=== PATIENT | female | born 1950 | race Caucasian/White ===

== ENCOUNTER → 2017-03-19 | Outpatient (CLI) | payer MEDICARE, MEDICAID ==
[~2017-03-19] MED LIST: ACET-1600 PO; CHOL200074 PO; CITA10TA8 PO; CYAN1TAB29 PO; DULO30CA2 PO; ESOM20CA PO; HYDR25TA6 PO; LEVO50TA5 PO; LISI1TAB3 PO; LISI5TAB7 PO; MV,I66.7 PO; PRAV40TA2 PO; PRED5TAB PO; ROPI0.2537 PO; TOPI25TA32 PO; TRAM50TA2 PO; [UNRECOGNIZED DRUG - REMARK] PO; vitamin d PO
[2017-03-19 15:48] LABS: BASOPHILS # (AUTO) 0.05 x10^3/uL (0-0.1); BASOPHILS % (AUTO) 1 % (0-1); EOSINOPHILS # (AUTO) 0.19 x10^3/uL (0-0.4); EOSINOPHILS % (AUTO) 3 % (1-7); LYMPHOCYTES # (AUTO) 1.47 x10^3/uL (1-3.4); LYMPHOCYTES % (AUTO) 19 % (22-44); MD NO; MEAN CORPUSCULAR HGB CONC 31.8 g/dL (32.4-35.8); MEAN CORPUSCULAR VOLUME 81.8 fL (80-100); MEAN PLATELET VOLUME 7.8 fL (7.4-10.4); MONOCYTES # (AUTO) 0.66 x10^3/uL (0.2-0.8); MONOCYTES % (AUTO) 9 % (2-9); NEUTROPHILS # (AUTO) 5.41 x10^3/uL (1.8-6.8); NEUTROPHILS % (AUTO) 70 % (42-75); PLATELET COUNT 250 x10^3/uL (130-400); RED BLOOD COUNT 4.47 x10^6/uL (3.82-5.3); RED CELL DISTRIBUTION WIDTH 16.6 % (9.6-15.2)
[2017-03-19 15:59] LABS: ALBUMIN 3.8 g/dL (3.4-5.0); ANION GAP 7 mmol/L (5-15); CALCIUM 8.5 mg/dL (8.5-10.1); CHLORIDE 112 mmol/L (98-107)
[2017-03-19 16:04] LABS: ALANINE AMINOTRANSFERASE 30 U/L (12-78); ALKALINE PHOSPHATASE 139 U/L (45-117); BILIRUBIN,TOTAL 0.5 mg/dL (0.2-1.0); TOTAL PROTEIN 7.5 g/dL (6.4-8.2)
== END | disposition home or self-care (01) ==
LOC: STAR 14:20
PROVIDERS: ATTEND Colon & Rectal Surgery
DX: Z01.818 Encounter for other preprocedural examination (principal)
CPT/HCPCS: 36415; 80053; 85025; 93005

== ENCOUNTER 2017-04-03 13:25 | Inpatient (IN) | payer MEDICARE, MEDICAID ==
[~2017-04-03] VITALS: Ht 162.6 cm; Wt 71.9 kg
[2017-04-03] MEDS ORDERED: ONDANSETRON 2MG/ML, 2ML IVPush ONE (14:30)
[2017-04-03] MEDS ORDERED: SODIUM CHLORIDE FLUSH 10ML SYR IVF ONE (14:30)
[2017-04-03] MEDS ORDERED: SODIUM CHLORIDE 0.9% 1,000ML IVBOLUS ONE (14:30)
[2017-04-03 14:57] LABS: MEAN CORPUSCULAR HEMOGLOBIN 26.3 pg (27.0-34.8); MEAN CORPUSCULAR HGB CONC 32.1 g/dL (32.4-35.8); MEAN CORPUSCULAR VOLUME 81.9 fL (80-100); MEAN PLATELET VOLUME 7.8 fL (7.4-10.4); PLATELET COUNT 460 x10^3/uL (130-400); RED BLOOD COUNT 4.64 x10^6/uL (3.82-5.3); RED CELL DISTRIBUTION WIDTH 17.7 % (9.6-15.2)
[2017-04-03 14:59] LABS: ALANINE AMINOTRANSFERASE 17 U/L (12-78); ANION GAP 9 mmol/L (5-15); CALCIUM 8.6 mg/dL (8.5-10.1); CHLORIDE 102 mmol/L (98-107); CREATININE 0.88 mg/dL (0.55-1.02)
[2017-04-03 15:01] LABS: ALKALINE PHOSPHATASE 118 U/L (45-117); BILIRUBIN,TOTAL 0.5 mg/dL (0.2-1.0); TOTAL PROTEIN 7.1 g/dL (6.4-8.2)
[2017-04-03] MEDS ORDERED: ONDANSETRON 2MG/ML, 2ML ONE (15:21)
[2017-04-03 15:28] LABS: BASOPHILS # (AUTO) 0.04 x10^3/uL (0-0.1); BASOPHILS % (AUTO) 0 % (0-1); EOSINOPHILS # (AUTO) 0.27 x10^3/uL (0-0.4); EOSINOPHILS % (AUTO) 2 % (1-7); LYMPHOCYTES # (AUTO) 1.34 x10^3/uL (1-3.4); LYMPHOCYTES % (AUTO) 9 % (22-44); MD SCAN; MONOCYTES # (AUTO) 0.75 x10^3/uL (0.2-0.8); MONOCYTES % (AUTO) 5 % (2-9); NEUTROPHILS # (AUTO) 11.86 x10^3/uL (1.8-6.8); NEUTROPHILS % (AUTO) 83 % (42-75)
[2017-04-03 16:42] LABS: MICROSCOPIC NOT IND
[2017-04-03] MEDS ORDERED: OMNIPAQUE 350 MG/ML, 100ML BOTTLE ONE (16:48)
[2017-04-03 17:13] LABS: CULTURE INDICATED? NO
[2017-04-03] MEDS ORDERED: D5%-0.45% NACL 1,000 ML IV ONE (18:36)
[2017-04-03] MEDS ORDERED: PROMETHAZINE 25 MG/ML, 1ML IM PRN (19:00)
[2017-04-03] MEDS ORDERED: ONDANSETRON 2MG/ML, 2ML IVPush PRN (19:00)
[2017-04-03 19:53] VITALS: BP 125/76
[2017-04-03 19:55] VITALS: BP 125/76
[2017-04-03] MEDS: LORazepam 2 MG/ML, 1ML IVPush PRN (22:33)
[2017-04-03] MEDS ORDERED: OXYC-302 PO (23:53)
[2017-04-04 02:05] VITALS: BP 109/62
[2017-04-04 07:25] VITALS: BP 116/72
[2017-04-04] MEDS ORDERED: TOPIRAMATE 25 MG TABLET PO PRN ×2 (11:30→12:00)
[2017-04-04] MEDS: ROPINIROLE 0.5MG TABLET PO SCH ×3 (12:17→20:39)
[2017-04-04] MEDS: NS + 20MEQ KCL 1,000 ML IV SCH (12:17)
[2017-04-04 14:58] VITALS: BP 117/67
[2017-04-04] MEDS ORDERED: ROPINIROLE 0.5MG TABLET PO SCH (16:00)
[2017-04-04 19:59] VITALS: BP 94/54
[2017-04-04] MEDS: DULOXETINE 30 MG CAPSULE.DR PO SCH (20:38)
[2017-04-04] MEDS: OXYcodone/APAP 5/325MG TABLET PO PRN ×2 (20:38→23:18)
[2017-04-04] MEDS: ONDANSETRON 2MG/ML, 2ML IVPush PRN (20:38)
[2017-04-04] MEDS: PRAVASTATIN 40 MG TABLET PO SCH (20:39)
[2017-04-04] MEDS: LORazepam 2 MG/ML, 1ML IVPush PRN (21:18)
[2017-04-05 01:12] VITALS: BP 123/79
[2017-04-05 05:58] LABS: BASOPHILS # (AUTO) 0.03 x10^3/uL (0-0.1); BASOPHILS % (AUTO) 0 % (0-1); EOSINOPHILS # (AUTO) 0.68 x10^3/uL (0-0.4); EOSINOPHILS % (AUTO) 7 % (1-7); LYMPHOCYTES # (AUTO) 1.69 x10^3/uL (1-3.4); LYMPHOCYTES % (AUTO) 17 % (22-44); MD NO; MEAN CORPUSCULAR HEMOGLOBIN 26.7 pg (27.0-34.8); MEAN CORPUSCULAR HGB CONC 32.5 g/dL (32.4-35.8); MEAN CORPUSCULAR VOLUME 82.1 fL (80-100); MEAN PLATELET VOLUME 7.7 fL (7.4-10.4); MONOCYTES # (AUTO) 0.87 x10^3/uL (0.2-0.8); MONOCYTES % (AUTO) 9 % (2-9); NEUTROPHILS # (AUTO) 6.51 x10^3/uL (1.8-6.8); NEUTROPHILS % (AUTO) 67 % (42-75); PLATELET COUNT 395 x10^3/uL (130-400); RED BLOOD COUNT 3.82 x10^6/uL (3.82-5.3); RED CELL DISTRIBUTION WIDTH 17.3 % (9.6-15.2)
[2017-04-05 06:02] LABS: ANION GAP 9 mmol/L (5-15); CALCIUM 8.1 mg/dL (8.5-10.1); CHLORIDE 108 mmol/L (98-107)
[2017-04-05 06:05] LABS: CREATININE 0.82 mg/dL (0.55-1.02)
[2017-04-05 06:42] VITALS: BP 115/66
[2017-04-05] MEDS: ROPINIROLE 0.5MG TABLET PO SCH ×4 (09:26→22:51)
[2017-04-05] MEDS: NS + 20MEQ KCL 1,000 ML IV SCH (09:28)
[2017-04-05] MEDS: METOCLOPRAMIDE 10MG TABLET PO SCH ×2 (11:50→16:45)
[2017-04-05 12:38] VITALS: BP 124/73
[2017-04-05] MEDS: ONDANSETRON 2MG/ML, 2ML IVPush PRN ×2 (15:31→19:49)
[2017-04-05 19:37] VITALS: BP 116/70
[2017-04-05] MEDS: PRAVASTATIN 40 MG TABLET PO SCH (19:43)
[2017-04-05] MEDS: DULOXETINE 30 MG CAPSULE.DR PO SCH (19:43)
[2017-04-05] MEDS: LORazepam 2 MG/ML, 1ML IVPush PRN (22:24)
[2017-04-06] MEDS: ONDANSETRON 2MG/ML, 2ML IVPush PRN ×4 (00:28→19:40)
[2017-04-06] MEDS: METOCLOPRAMIDE 10MG TABLET PO SCH ×4 (00:28→17:00)
[2017-04-06] MEDS: OXYcodone/APAP 5/325MG TABLET PO PRN (00:28)
[2017-04-06 03:55] VITALS: BP 110/69
[2017-04-06 04:55] LABS: BASOPHILS # (AUTO) 0.07 x10^3/uL (0-0.1); BASOPHILS % (AUTO) 1 % (0-1); EOSINOPHILS # (AUTO) 0.48 x10^3/uL (0-0.4); EOSINOPHILS % (AUTO) 6 % (1-7); LYMPHOCYTES # (AUTO) 1.43 x10^3/uL (1-3.4); LYMPHOCYTES % (AUTO) 17 % (22-44); MD NO; MEAN CORPUSCULAR HEMOGLOBIN 26.5 pg (27.0-34.8); MEAN CORPUSCULAR HGB CONC 32.3 g/dL (32.4-35.8); MONOCYTES # (AUTO) 0.84 x10^3/uL (0.2-0.8); MONOCYTES % (AUTO) 10 % (2-9); NEUTROPHILS # (AUTO) 5.87 x10^3/uL (1.8-6.8); NEUTROPHILS % (AUTO) 68 % (42-75); PLATELET COUNT 369 x10^3/uL (130-400); RED BLOOD COUNT 3.85 x10^6/uL (3.82-5.3); RED CELL DISTRIBUTION WIDTH 17.3 % (9.6-15.2)
[2017-04-06 05:02] LABS: ANION GAP 8 mmol/L (5-15); CALCIUM 8.1 mg/dL (8.5-10.1); CHLORIDE 107 mmol/L (98-107); CREATININE 0.87 mg/dL (0.55-1.02)
[2017-04-06] MEDS: NS + 20MEQ KCL 1,000 ML IV SCH (06:03)
[2017-04-06] MEDS: ROPINIROLE 0.5MG TABLET PO SCH ×3 (08:30→21:09)
[2017-04-06 08:36] VITALS: BP 102/59
[2017-04-06] MEDS: CALCIUM CARBONATE 500 MG TAB.CHEW PO PRN (12:29)
[2017-04-06 15:26] VITALS: BP 104/65
[2017-04-06 20:53] VITALS: BP 112/66
[2017-04-06] MEDS: DULOXETINE 30 MG CAPSULE.DR PO SCH (21:09)
[2017-04-06] MEDS: PRAVASTATIN 40 MG TABLET PO SCH (21:09)
[2017-04-07] MEDS: ONDANSETRON 2MG/ML, 2ML IVPush PRN ×5 (00:16→20:10)
[2017-04-07] MEDS: LORazepam 2 MG/ML, 1ML IVPush PRN ×2 (00:17→23:50)
[2017-04-07] MEDS: CALCIUM CARBONATE 500 MG TAB.CHEW PO PRN ×2 (00:17→10:43)
[2017-04-07] MEDS: OXYcodone/APAP 5/325MG TABLET PO PRN (00:17)
[2017-04-07 00:18] VITALS: BP 108/59
[2017-04-07] MEDS: NS + 20MEQ KCL 1,000 ML IV SCH (04:23)
[2017-04-07 05:54] LABS: BASOPHILS # (AUTO) 0.06 x10^3/uL (0-0.1); BASOPHILS % (AUTO) 1 % (0-1); EOSINOPHILS # (AUTO) 0.46 x10^3/uL (0-0.4); EOSINOPHILS % (AUTO) 6 % (1-7); LYMPHOCYTES # (AUTO) 1.79 x10^3/uL (1-3.4); LYMPHOCYTES % (AUTO) 23 % (22-44); MD NO; MEAN CORPUSCULAR HEMOGLOBIN 26.9 pg (27.0-34.8); MEAN CORPUSCULAR VOLUME 81.3 fL (80-100); MEAN PLATELET VOLUME 8.7 fL (7.4-10.4); MONOCYTES # (AUTO) 0.92 x10^3/uL (0.2-0.8); MONOCYTES % (AUTO) 12 % (2-9); NEUTROPHILS # (AUTO) 4.58 x10^3/uL (1.8-6.8); NEUTROPHILS % (AUTO) 59 % (42-75); PLATELET COUNT 383 x10^3/uL (130-400); RED BLOOD COUNT 3.88 x10^6/uL (3.82-5.3); RED CELL DISTRIBUTION WIDTH 17.1 % (9.6-15.2)
[2017-04-07 06:28] LABS: ANION GAP 12 mmol/L (5-15); CALCIUM 8.7 mg/dL (8.5-10.1); CHLORIDE 105 mmol/L (98-107)
[2017-04-07 06:30] LABS: CREATININE 0.92 mg/dL (0.55-1.02)
[2017-04-07] MEDS: ROPINIROLE 0.5MG TABLET PO SCH ×3 (08:26→20:51)
[2017-04-07] MEDS: OMEPRAZOLE 20 MG CAPSULE.DR PO SCH (08:26)
[2017-04-07] MEDS: METOCLOPRAMIDE 10MG TABLET PO SCH ×3 (08:26→16:57)
[2017-04-07 09:50] VITALS: BP 102/58
[2017-04-07 13:09] VITALS: BP 116/72
[2017-04-07] MEDS ORDERED: OMNIPAQUE 350 MG/ML, 100ML BOTTLE ONE (14:42)
[2017-04-07 20:15] VITALS: BP 109/67
[2017-04-07] MEDS: DULOXETINE 30 MG CAPSULE.DR PO SCH (20:51)
[2017-04-07] MEDS: PRAVASTATIN 40 MG TABLET PO SCH (20:51)
[2017-04-08] MEDS: NS + 20MEQ KCL 1,000 ML IV SCH (00:45)
[2017-04-08] MEDS: ONDANSETRON 2MG/ML, 2ML IVPush PRN ×2 (00:53→08:05)
[2017-04-08 00:56] VITALS: BP 115/70
[2017-04-08] MEDS: OXYcodone/APAP 5/325MG TABLET PO PRN ×2 (03:06→16:36)
[2017-04-08] MEDS: METOCLOPRAMIDE 10MG TABLET PO SCH (06:28)
[2017-04-08 07:38] VITALS: BP 91/58
[2017-04-08] MEDS: ROPINIROLE 0.5MG TABLET PO SCH ×3 (08:05→21:05)
[2017-04-08] MEDS: OMEPRAZOLE 20 MG CAPSULE.DR PO SCH (08:05)
[2017-04-08] MEDS ORDERED: TPN PER PHARMACY MC PRN (11:00)
[2017-04-08 12:00] LABS: ANION GAP 8 mmol/L (5-15); CALCIUM 8.4 mg/dL (8.5-10.1); CHLORIDE 103 mmol/L (98-107); CREATININE 0.97 mg/dL (0.55-1.02)
[2017-04-08] MEDS ORDERED: ONDANSETRON 2MG/ML, 2ML IVPush PRN (13:00)
[2017-04-08 13:55] VITALS: BP 94/60
[2017-04-08] MEDS ORDERED: DEXTROSE 70% IV SCH (17:00)
[2017-04-08] MEDS ORDERED: DEXTROSE 50%, 50ML SYRINGE IVPush PRN (17:00)
[2017-04-08] MEDS ORDERED: AMINO ACID 10% IV SCH (17:00)
[2017-04-08] MEDS ORDERED: [UNRECOGNIZED DRUG - OTHER] IV SCH (17:00)
[2017-04-08] MEDS ORDERED: FAT EMULSIONS IV SCH (17:00)
[2017-04-08] MEDS ORDERED: DEXTROSE 10% 500 ML IV PRN (17:00)
[2017-04-08] MEDS: FILTER, DISP 1.2 MICRON FOR TPN/PVN IV PRN (18:32)
[2017-04-08 19:25] VITALS: BP 91/57
[2017-04-08] MEDS: DULOXETINE 30 MG CAPSULE.DR PO SCH (21:05)
[2017-04-08] MEDS: PRAVASTATIN 40 MG TABLET PO SCH (21:05)
[2017-04-08] MEDS: INSULIN REGULAR LOW DOSE Q6H X 48HRS SQ-INSULIN SCH (23:00)
[2017-04-09 01:02] VITALS: BP 103/68
[2017-04-09] MEDS: OXYcodone/APAP 5/325MG TABLET PO PRN (01:29)
[2017-04-09] MEDS: INSULIN REGULAR LOW DOSE Q6H X 48HRS SQ-INSULIN SCH ×4 (05:00→23:00)
[2017-04-09 05:35] LABS: BASOPHILS # (AUTO) 0.08 x10^3/uL (0-0.1); BASOPHILS % (AUTO) 1 % (0-1); EOSINOPHILS # (AUTO) 0.72 x10^3/uL (0-0.4); EOSINOPHILS % (AUTO) 10 % (1-7); LYMPHOCYTES # (AUTO) 1.31 x10^3/uL (1-3.4); LYMPHOCYTES % (AUTO) 19 % (22-44); MD NO; MEAN CORPUSCULAR HEMOGLOBIN 26.5 pg (27.0-34.8); MEAN CORPUSCULAR HGB CONC 32.4 g/dL (32.4-35.8); MEAN PLATELET VOLUME 7.9 fL (7.4-10.4); MONOCYTES # (AUTO) 0.77 x10^3/uL (0.2-0.8); MONOCYTES % (AUTO) 11 % (2-9); NEUTROPHILS # (AUTO) 4.09 x10^3/uL (1.8-6.8); NEUTROPHILS % (AUTO) 59 % (42-75); PLATELET COUNT 336 x10^3/uL (130-400); RED BLOOD COUNT 3.76 x10^6/uL (3.82-5.3); RED CELL DISTRIBUTION WIDTH 17.6 % (9.6-15.2)
[2017-04-09 05:37] LABS: ALBUMIN 2.6 g/dL (3.4-5.0); ANION GAP 8 mmol/L (5-15); CALCIUM 8.1 mg/dL (8.5-10.1); CHLORIDE 106 mmol/L (98-107)
[2017-04-09 05:42] LABS: ALANINE AMINOTRANSFERASE 15 U/L (12-78); ALKALINE PHOSPHATASE 86 U/L (45-117); BILIRUBIN,TOTAL 0.3 mg/dL (0.2-1.0); PREALBUMIN 9.7 mg/dL (20.0-40.0); TOTAL PROTEIN 5.9 g/dL (6.4-8.2); TRIGLYCERIDES 102 mg/dL (50-200)
[2017-04-09 07:30] VITALS: BP 90/55
[2017-04-09] MEDS: PANTOPRAZOLE 40 MG IV IVPush SCH (08:35)
[2017-04-09] MEDS: ROPINIROLE 0.5MG TABLET PO SCH ×3 (08:35→20:26)
[2017-04-09 13:05] VITALS: BP 92/57
[2017-04-09] MEDS ORDERED: [UNRECOGNIZED DRUG - OTHER] IV SCH (17:00)
[2017-04-09] MEDS ORDERED: DEXTROSE 70% IV SCH (17:00)
[2017-04-09] MEDS ORDERED: FAT EMULSIONS IV SCH (17:00)
[2017-04-09] MEDS ORDERED: AMINO ACID 10% IV SCH (17:00)
[2017-04-09] MEDS: FILTER, DISP 1.2 MICRON FOR TPN/PVN IV PRN (18:23)
[2017-04-09 19:40] VITALS: BP 97/60
[2017-04-09] MEDS: DULOXETINE 30 MG CAPSULE.DR PO SCH (20:25)
[2017-04-09] MEDS: PRAVASTATIN 40 MG TABLET PO SCH (20:26)
[2017-04-09] MEDS: LORazepam 2 MG/ML, 1ML IVPush PRN (23:14)
[2017-04-10] MEDS: OXYcodone/APAP 5/325MG TABLET PO PRN ×2 (01:20→23:40)
[2017-04-10 01:49] VITALS: BP 96/59
[2017-04-10] MEDS: INSULIN REGULAR LOW DOSE Q6H X 48HRS SQ-INSULIN SCH ×3 (05:00→17:00)
[2017-04-10 05:34] LABS: ANION GAP 8 mmol/L (5-15); CHLORIDE 106 mmol/L (98-107)
[2017-04-10 05:35] LABS: CREATININE 0.82 mg/dL (0.55-1.02)
[2017-04-10 07:14] VITALS: BP 94/59
[2017-04-10] MEDS: PANTOPRAZOLE 40 MG IV IVPush SCH (08:39)
[2017-04-10] MEDS: ROPINIROLE 0.5MG TABLET PO SCH ×3 (10:20→22:04)
[2017-04-10 13:51] VITALS: BP 85/52
[2017-04-10] MEDS ORDERED: [UNRECOGNIZED DRUG - OTHER] IV SCH (17:00)
[2017-04-10] MEDS ORDERED: AMINO ACID 10% IV SCH (17:00)
[2017-04-10] MEDS ORDERED: FAT EMULSIONS IV SCH (17:00)
[2017-04-10] MEDS ORDERED: DEXTROSE 70% IV SCH (17:00)
[2017-04-10] MEDS: FILTER, DISP 1.2 MICRON FOR TPN/PVN IV PRN (17:13)
[2017-04-10 21:14] VITALS: BP 100/61
[2017-04-10] MEDS: PRAVASTATIN 40 MG TABLET PO SCH (22:04)
[2017-04-10] MEDS: DULOXETINE 30 MG CAPSULE.DR PO SCH (22:04)
[2017-04-11 04:10] VITALS: BP 96/54
[2017-04-11 06:51] LABS: ANION GAP 7 mmol/L (5-15); CALCIUM 8.1 mg/dL (8.5-10.1); CHLORIDE 104 mmol/L (98-107); CREATININE 0.79 mg/dL (0.55-1.02)
[2017-04-11] MEDS: INSULIN REGULAR LOW DOSE QDAY SQ-INSULIN SCH (07:11)
[2017-04-11 07:48] VITALS: BP 100/63
[2017-04-11] MEDS: ROPINIROLE 0.5MG TABLET PO SCH ×3 (08:46→20:51)
[2017-04-11] MEDS: PANTOPRAZOLE 40 MG IV IVPush SCH (08:47)
[2017-04-11 15:15] VITALS: BP 104/58
[2017-04-11] MEDS ORDERED: FAT EMULSIONS IV SCH (17:00)
[2017-04-11] MEDS ORDERED: FILTER, DISP 1.2 MICRON FOR TPN/PVN IV PRN (17:00)
[2017-04-11] MEDS ORDERED: [UNRECOGNIZED DRUG - OTHER] IV SCH (17:00)
[2017-04-11] MEDS ORDERED: AMINO ACID 10% IV SCH (17:00)
[2017-04-11] MEDS ORDERED: DEXTROSE 70% IV SCH (17:00)
[2017-04-11 19:45] VITALS: BP 97/67
[2017-04-11] MEDS: PRAVASTATIN 40 MG TABLET PO SCH (20:51)
[2017-04-11] MEDS: DULOXETINE 30 MG CAPSULE.DR PO SCH (20:51)
[2017-04-11] MEDS: OXYcodone/APAP 5/325MG TABLET PO PRN (23:31)
[2017-04-12 02:00] VITALS: BP 97/60
[2017-04-12] MEDS: INSULIN REGULAR LOW DOSE QDAY SQ-INSULIN SCH (05:02)
[2017-04-12 05:22] LABS: ANION GAP 8 mmol/L (5-15); CALCIUM 8.3 mg/dL (8.5-10.1); CHLORIDE 105 mmol/L (98-107); CREATININE 0.73 mg/dL (0.55-1.02)
[2017-04-12 07:30] VITALS: BP 101/66
[2017-04-12] MEDS: PANTOPRAZOLE 40 MG IV IVPush SCH (07:57)
[2017-04-12] MEDS: ROPINIROLE 0.5MG TABLET PO SCH ×3 (07:57→21:09)
[2017-04-12] MEDS ORDERED: FAT EMULSIONS IV SCH (17:00)
[2017-04-12] MEDS ORDERED: DEXTROSE 70% IV SCH (17:00)
[2017-04-12] MEDS ORDERED: AMINO ACID 10% IV SCH (17:00)
[2017-04-12] MEDS ORDERED: [UNRECOGNIZED DRUG - OTHER] IV SCH (17:00)
[2017-04-12 19:44] VITALS: BP 104/67
[2017-04-12] MEDS: PRAVASTATIN 40 MG TABLET PO SCH (21:09)
[2017-04-12] MEDS: DULOXETINE 30 MG CAPSULE.DR PO SCH (21:09)
[2017-04-12] MEDS: OXYcodone/APAP 5/325MG TABLET PO PRN (22:54)
[2017-04-13 01:44] VITALS: BP 105/69
[2017-04-13 07:15] VITALS: BP 122/52
[2017-04-13] MEDS: ROPINIROLE 0.5MG TABLET PO SCH (07:54)
[2017-04-13] MEDS: PANTOPRAZOLE 40 MG IV IVPush SCH (07:54)
== END 2017-04-13 12:10 | disposition home health service (06) | DRG 388 ==
LOC: ED 17:29 → EDIP 18:35 → 3NW 19:51
PROVIDERS: ADMIT Colon & Rectal Surgery; ATTEND Colon & Rectal Surgery
PROC: 02HV33Z Insertion of Infusion Device into Superior Vena Cava, Percutaneous Approach (ICD-10-PCS; principal; 2017-04-08)
PROC: B548ZZA Ultrasonography of Superior Vena Cava, Guidance (ICD-10-PCS; 2017-04-08)
PROC: B5181ZA Fluoroscopy of Superior Vena Cava using Low Osmolar Contrast, Guidance (ICD-10-PCS; 2017-04-08)
DX: K56.600 Partial intestinal obstruction, unspecified as to cause (principal); E43 Unspecified severe protein-calorie malnutrition; D72.829 Elevated white blood cell count, unspecified; E86.0 Dehydration; I10 Essential (primary) hypertension; Z85.048 Personal history of other malignant neoplasm of rectum, rectosigmoid junction, and anus; K21.9 Gastro-esophageal reflux disease without esophagitis; R62.7 Adult failure to thrive; Z87.442 Personal history of urinary calculi; Z90.710 Acquired absence of both cervix and uterus; Z98.84 Bariatric surgery status; Z93.2 Ileostomy status; Z88.2 Allergy status to sulfonamides; Z68.27 Body mass index [BMI] 27.0-27.9, adult
CPT/HCPCS: 36415; 36569; 74018; 74177; 74245; 76937; 77001; 80048; 80053; 81003; 82962; 83690; 83735; 84100; 84134; 84478; 85025; 96361; 96374; J0610; J2405; J3475; J3480; Q9967; C1751; C9113; J2060; J3420; J7030

== ENCOUNTER 2017-04-26 08:17 | Day surgery (SDC) | payer MEDICARE, MEDICAID ==
[~2017-04-26] VITALS: Ht 162.6 cm; Wt 75.1 kg
[~2017-04-26 08:17] MED LIST changes: +BUPIVACAINE/PF 0.5% ONE; +EPINEPHRINE 1 MG/ML, 1ML ONE; +HEPARIN 1,000 UNITS/ML, 10ML ONE; +OXYC-302 PO
[2017-04-26] MEDS ORDERED: LACTATED RINGERS 1,000 ML IV SCH (08:48)
[2017-04-26] MEDS ORDERED: FENTANYL PF 250 MCG/5ML ONE (08:49)
[2017-04-26] MEDS ORDERED: MIDAZOLAM 1 MG/ML, 2ML ONE (08:49)
[2017-04-26] MEDS ORDERED: ROCURONIUM 10 MG/ML,10ML ONE (08:52)
[2017-04-26] MEDS ORDERED: PROPOFOL 10 MG/ML, 20ML ONE (08:52)
[2017-04-26] MEDS ORDERED: SODIUM CHLORIDE 0.9% PF 10ML ONE (08:53)
[2017-04-26] MEDS ORDERED: CEFAZOLIN 1,000 MG ONE ×2 (08:53)
[2017-04-26] MEDS ORDERED: NEOSTIGMINE 1 MG/ML, 10ML ONE (08:55)
[2017-04-26] MEDS ORDERED: GLYCOPYRROLATE 0.4 MG/2 ML, 2ML ONE (08:56)
[2017-04-26 09:11] VITALS: BP 105/68
[2017-04-26] MEDS ORDERED: OMEP20TA62 PO (09:11)
[2017-04-26] MEDS ORDERED: DEXAMETHASONE 4 MG/ML, 1ML ONE ×2 (11:00)
[2017-04-26] MEDS ORDERED: hydrALAzine 20 MG/ML, 1ML IV PRN (11:00)
[2017-04-26] MEDS ORDERED: PROMETHAZINE 12.5 MG SUPP PR PRN (11:00)
[2017-04-26] MEDS ORDERED: ONDANSETRON 2MG/ML, 2ML ONE (11:00)
[2017-04-26] MEDS ORDERED: MEPERIDINE/PF 25MG/0.5ML IVPush PRN (11:00)
[2017-04-26] MEDS ORDERED: ONDANSETRON 2MG/ML, 2ML IVPush PRN (11:00)
[2017-04-26] MEDS ORDERED: ACETAMINOPHEN 325 MG TABLET PO PRN (11:00)
[2017-04-26] MEDS ORDERED: OXYcodone 5 MG/5 ML ORAL.SOL UDC PO PRN (11:00)
[2017-04-26] MEDS ORDERED: HYDROmorphone 1 MG/ML, 1ML IV PRN (11:00)
[2017-04-26] MEDS ORDERED: LABETALOL 5MG/ML, 20ML IV PRN (11:00)
[2017-04-26] MEDS ORDERED: BUPIVACAINE/PF-EPI 0.5% 1:200K INFIL ONE (11:26)
[2017-04-26] MEDS ORDERED: FENTANYL PF 100 MCG/2ML ONE (12:50)
[2017-04-26] MEDS ORDERED: OXYcodone 5 MG/5 ML ORAL.SOL UDC ONE (12:50)
[2017-04-26] MEDS ORDERED: ACETAMINOPHEN 650 MG/20.3 ML UDC ONE (12:50)
[2017-04-26] MEDS: FENTANYL PF 100 MCG/2ML IV PRN ×2 (12:58→13:15)
== END 2017-04-26 14:40 ==
LOC: OUT 08:17
PROVIDERS: ATTEND Colon & Rectal Surgery
DX: Z45.2 Encounter for adjustment and management of vascular access device (principal); C20 Malignant neoplasm of rectum; Z87.39 Personal history of other diseases of the musculoskeletal system and connective tissue; E78.00 Pure hypercholesterolemia, unspecified; Z90.49 Acquired absence of other specified parts of digestive tract; Z98.890 Other specified postprocedural states; Z98.84 Bariatric surgery status; Z90.710 Acquired absence of both cervix and uterus; Z93.2 Ileostomy status; Z88.1 Allergy status to other antibiotic agents
CPT/HCPCS: 36561; 77001; C1788; J0171; J0690; J1100; J1644; J2250; J2405; J2704; J2710; J3010; J3490; J7120

== ENCOUNTER → 2017-11-13 | Outpatient (CLI) | payer MEDICARE, MEDICAID ==
[~2017-11-13] MED LIST changes: -BUPIVACAINE/PF 0.5% ONE; -EPINEPHRINE 1 MG/ML, 1ML ONE; -HEPARIN 1,000 UNITS/ML, 10ML ONE; +OMEP20TA62 PO; +RIVA20TA PO; -ROPI0.2537 PO; +ROPI0.254 PO
== END | disposition home or self-care (01) ==
LOC: STAR 13:13
PROVIDERS: ATTEND Colon & Rectal Surgery
DX: Z01.818 Encounter for other preprocedural examination (principal)
CPT/HCPCS: 93005

== ENCOUNTER → 2017-11-13 | Outpatient (CLI) | payer MEDICARE, MEDICAID ==
[~2017-11-13] MED LIST changes: +ROPI0.2537 PO; -ROPI0.254 PO
== END | disposition home or self-care (01) ==
LOC: CFH 10:43
PROVIDERS: ATTEND Colon & Rectal Surgery
DX: K57.90 Diverticulosis of intestine, part unspecified, without perforation or abscess without bleeding (principal); Z93.2 Ileostomy status
CPT/HCPCS: 74270

== ENCOUNTER 2017-11-25 13:33 | Inpatient (IN) | payer MEDICARE, MEDICAID ==
[~2017-11-25] VITALS: Ht 162.6 cm; Wt 63.3 kg
[~2017-11-25 13:33] MED LIST changes: +ONDA4TAB10 PO; -ROPI0.2537 PO; +ROPI0.254 PO
[2017-11-25] MEDS ORDERED: SODIUM CHLORIDE 0.9% 1,000ML IVBOLUS ONE (14:00)
[2017-11-25] MEDS ORDERED: PLEASE ENTER HEIGHT AND WEIGHT MC SCH (14:00)
[2017-11-25 14:24] LABS: BASOPHILS # (AUTO) 0.01 x10^3/uL (0-0.1); BASOPHILS % (AUTO) 0 % (0-1); EOSINOPHILS # (AUTO) 0.42 x10^3/uL (0-0.4); EOSINOPHILS % (AUTO) 5 % (1-7); LYMPHOCYTES # (AUTO) 0.82 x10^3/uL (1-3.4); LYMPHOCYTES % (AUTO) 10 % (22-44); MD NO; MEAN CORPUSCULAR HEMOGLOBIN 32.9 pg (27.0-34.8); MEAN CORPUSCULAR HGB CONC 33.1 g/dL (32.4-35.8); MEAN CORPUSCULAR VOLUME 99.3 fL (80-100); MEAN PLATELET VOLUME 7.8 fL (7.4-10.4); MONOCYTES # (AUTO) 0.68 x10^3/uL (0.2-0.8); MONOCYTES % (AUTO) 8 % (2-9); NEUTROPHILS # (AUTO) 6.68 x10^3/uL (1.8-6.8); NEUTROPHILS % (AUTO) 78 % (42-75); PLATELET COUNT 258 x10^3/uL (130-400); RED BLOOD COUNT 3.07 x10^6/uL (3.82-5.3); RED CELL DISTRIBUTION WIDTH 14.9 % (9.6-15.2)
[2017-11-25 14:31] LABS: INTERNATIONAL NORMALIZED RATIO 0.98 (0.93-1.1); PROTHROMBIN TIME 10.2 Seconds (9.6-11.5)
[2017-11-25 14:33] LABS: ALANINE AMINOTRANSFERASE 24 U/L (12-78); ALBUMIN 2.7 g/dL (3.4-5.0); ANION GAP 11 mmol/L (5-15); CALCIUM 8.5 mg/dL (8.5-10.1); CHLORIDE 104 mmol/L (98-107); CREATININE 0.91 mg/dL (0.55-1.02)
[2017-11-25 14:35] LABS: ALKALINE PHOSPHATASE 123 U/L (45-117); BILIRUBIN,TOTAL 0.7 mg/dL (0.2-1.0); TOTAL PROTEIN 5.8 g/dL (6.4-8.2)
[2017-11-25 15:10] LABS: MICROSCOPIC AUTO
[2017-11-25 15:14] LABS: CULTURE INDICATED? YES
[2017-11-25] MEDS ORDERED: SODIUM CHLORIDE 0.9%, 500ML IVBOLUS ONE (15:30)
[2017-11-25 15:45] LABS: CLOSTRIDIUM DIFFICILE ANTIGEN NEGATIVE; CLOSTRIDIUM DIFFICILE TOXIN NEGATIVE (Negative)
[2017-11-25] MEDS ORDERED: CEFTRIAXONE PMX 1GM/50ML 50 ML IV ONE (16:30)
[2017-11-25] MEDS: SODIUM CHLORIDE 0.9% 1,000 ML IV SCH ×2 (17:08→23:59)
[2017-11-25] MEDS ORDERED: ONDANSETRON 2MG/ML, 2ML IVPush PRN (17:30)
[2017-11-25] MEDS: CEFTRIAXONE 1,000 MG in SODIUM CHLORIDE 0.9% 50 ML IV SCH (17:30)
[2017-11-25] MEDS ORDERED: ONDANSETRON ODT 4 MG PO PRN (17:30)
[2017-11-25] MEDS ORDERED: ENALAPRILAT 1.25 MG/ML, 2ML IVPush PRN (17:30)
[2017-11-25] MEDS ORDERED: CEFTRIAXONE PMX 1GM/50ML 50 ML ONE (18:08)
[2017-11-25 19:10] VITALS: BP 94/60
[2017-11-25] MEDS: DULOXETINE 30 MG CAPSULE.DR PO SCH (22:12)
[2017-11-25] MEDS: CYANOCOBALAMIN 1,000 MCG TABLET PO SCH (22:12)
[2017-11-25] MEDS: ROPINIROLE 1MG TABLET PO SCH (22:13)
[2017-11-26 00:01] VITALS: BP 98/68
[2017-11-26] MEDS: OXYcodone/APAP 5/325MG TABLET PO PRN (00:13)
[2017-11-26 04:54] LABS: CHLORIDE 111 mmol/L (98-107)
[2017-11-26 05:05] LABS: BASOPHILS # (AUTO) 0.01 x10^3/uL (0-0.1); BASOPHILS % (AUTO) 0 % (0-1); EOSINOPHILS # (AUTO) 0.93 x10^3/uL (0-0.4); EOSINOPHILS % (AUTO) 13 % (1-7); LYMPHOCYTES # (AUTO) 1.48 x10^3/uL (1-3.4); LYMPHOCYTES % (AUTO) 21 % (22-44); MD NO; MEAN CORPUSCULAR HEMOGLOBIN 33.6 pg (27.0-34.8); MEAN CORPUSCULAR HGB CONC 33.3 g/dL (32.4-35.8); MEAN CORPUSCULAR VOLUME 100.9 fL (80-100); MEAN PLATELET VOLUME 8.1 fL (7.4-10.4); MONOCYTES # (AUTO) 0.59 x10^3/uL (0.2-0.8); MONOCYTES % (AUTO) 8 % (2-9); NEUTROPHILS % (AUTO) 58 % (42-75); PLATELET COUNT 225 x10^3/uL (130-400); RED BLOOD COUNT 2.73 x10^6/uL (3.82-5.3); RED CELL DISTRIBUTION WIDTH 15.4 % (9.6-15.2)
[2017-11-26 05:07] LABS: ALANINE AMINOTRANSFERASE 21 U/L (12-78); ALBUMIN 2.4 g/dL (3.4-5.0); ALKALINE PHOSPHATASE 109 U/L (45-117); ANION GAP 10 mmol/L (5-15); BILIRUBIN,TOTAL 0.5 mg/dL (0.2-1.0); CALCIUM 8.2 mg/dL (8.5-10.1); CREATINE KINASE, TOTAL 558 U/L (26-192); TOTAL PROTEIN 5.3 g/dL (6.4-8.2)
[2017-11-26 07:24] VITALS: BP 96/57
[2017-11-26] MEDS ORDERED: FOLIC ACID 1 MG TABLET PO SCH (09:00)
[2017-11-26] MEDS: ROPINIROLE 1MG TABLET PO SCH ×2 (11:06→20:29)
[2017-11-26] MEDS: OMEPRAZOLE 20 MG CAPSULE.DR PO SCH (11:06)
[2017-11-26] MEDS: CYANOCOBALAMIN 1,000 MCG TABLET PO SCH (11:07)
[2017-11-26] MEDS: LACTOBACILLUS CHEW TABLET PO SCH ×3 (11:07→20:29)
[2017-11-26] MEDS: ACETAMINOPHEN 325 MG TABLET PO PRN ×3 (13:03→22:48)
[2017-11-26 13:37] VITALS: BP 101/64
[2017-11-26] MEDS ORDERED: ACID1TAB7 PO (14:16)
[2017-11-26] MEDS ORDERED: CEFD300C37 PO (14:16)
[2017-11-26] MEDS: SODIUM CHLORIDE 0.9% 1,000 ML IV SCH (15:30)
[2017-11-26] MEDS: CEFTRIAXONE 1,000 MG in SODIUM CHLORIDE 0.9% 50 ML IV SCH (18:15)
[2017-11-26] MEDS: DULOXETINE 30 MG CAPSULE.DR PO SCH (20:29)
[2017-11-26 20:53] VITALS: BP 102/61
[2017-11-27 04:36] VITALS: BP 108/68
[2017-11-27] MEDS: SODIUM CHLORIDE 0.9% 1,000 ML IV SCH ×2 (04:43→21:14)
[2017-11-27] MEDS: ACETAMINOPHEN 325 MG TABLET PO PRN ×2 (04:44→20:50)
[2017-11-27 06:18] LABS: BASOPHILS # (AUTO) 0.05 x10^3/uL (0-0.1); BASOPHILS % (AUTO) 1 % (0-1); EOSINOPHILS # (AUTO) 0.82 x10^3/uL (0-0.4); EOSINOPHILS % (AUTO) 14 % (1-7); LYMPHOCYTES # (AUTO) 1.14 x10^3/uL (1-3.4); LYMPHOCYTES % (AUTO) 20 % (22-44); MD NO; MEAN CORPUSCULAR HEMOGLOBIN 32.9 pg (27.0-34.8); MEAN CORPUSCULAR VOLUME 99.5 fL (80-100); MEAN PLATELET VOLUME 7.3 fL (7.4-10.4); MONOCYTES % (AUTO) 10 % (2-9); NEUTROPHILS % (AUTO) 55 % (42-75); PLATELET COUNT 244 x10^3/uL (130-400); RED BLOOD COUNT 2.67 x10^6/uL (3.82-5.3); RED CELL DISTRIBUTION WIDTH 14.7 % (9.6-15.2)
[2017-11-27 06:28] LABS: % IRON SATURATION 13 % (20-55); IRON LEVEL 24 mcg/dL (50-170); TOTAL IRON BINDING CAPACITY 186 mcg/dL (250-450)
[2017-11-27 06:54] LABS: CREATINE KINASE, TOTAL 209 U/L (26-192)
[2017-11-27 06:56] LABS: FOLATE LEVEL > 20.0 ng/mL (3.1-17.5)
[2017-11-27] MEDS ORDERED: FERROUS SULFATE 325 MG TABLET PO SCH (07:00)
[2017-11-27 07:02] VITALS: BP 108/65
[2017-11-27] MEDS: ROPINIROLE 1MG TABLET PO SCH ×2 (08:12→20:49)
[2017-11-27] MEDS: OMEPRAZOLE 20 MG CAPSULE.DR PO SCH (08:12)
[2017-11-27] MEDS: LACTOBACILLUS CHEW TABLET PO SCH ×3 (08:13→20:49)
[2017-11-27 13:10] VITALS: BP 109/68
[2017-11-27] MEDS: OXYcodone/APAP 5/325MG TABLET PO PRN (13:19)
[2017-11-27] MEDS: CEFTRIAXONE 1,000 MG in SODIUM CHLORIDE 0.9% 50 ML IV SCH (18:35)
[2017-11-27 19:48] VITALS: BP 95/55
[2017-11-27] MEDS: DULOXETINE 30 MG CAPSULE.DR PO SCH (20:50)
[2017-11-28 01:32] VITALS: BP 91/51
[2017-11-28] MEDS: ACETAMINOPHEN 325 MG TABLET PO PRN (04:47)
[2017-11-28 07:17] VITALS: BP 95/60
[2017-11-28] MEDS ORDERED: DIPHENOXYLATE/ATROPINE TABLET PO PRN (07:30)
[2017-11-28] MEDS: ROPINIROLE 1MG TABLET PO SCH (08:21)
[2017-11-28] MEDS: LACTOBACILLUS CHEW TABLET PO SCH (08:21)
[2017-11-28] MEDS: OMEPRAZOLE 20 MG CAPSULE.DR PO SCH (08:21)
== END 2017-11-28 10:05 | DRG 871 ==
LOC: ED 16:45 → EDIP 17:29 → 3NE 18:26 → 3NW 11-26 00:07
PROVIDERS: ADMIT Hospitalist; ATTEND Hospitalist
PROC: 0T9B70Z Drainage of Bladder with Drainage Device, Via Natural or Artificial Opening (ICD-10-PCS; principal; 2017-11-25)
DX: A41.9 Sepsis, unspecified organism (principal); G93.41 Metabolic encephalopathy; N39.0 Urinary tract infection, site not specified; E87.1 Hypo-osmolality and hyponatremia; M62.82 Rhabdomyolysis; S09.90XA Unspecified injury of head, initial encounter; I10 Essential (primary) hypertension; Z91.048 Other nonmedicinal substance allergy status; Z88.2 Allergy status to sulfonamides; W18.39XA Other fall on same level, initial encounter; Y93.89 Activity, other specified; Y92.89 Other specified places as the place of occurrence of the external cause; Y99.8 Other external cause status; E86.0 Dehydration; Z85.038 Personal history of other malignant neoplasm of large intestine; Z86.718 Personal history of other venous thrombosis and embolism; Z87.442 Personal history of urinary calculi; Z98.84 Bariatric surgery status; K66.8 Other specified disorders of peritoneum; M19.90 Unspecified osteoarthritis, unspecified site; D63.8 Anemia in other chronic diseases classified elsewhere
CPT/HCPCS: 36415; 70450; 70551; 71045; 72146; 72148; 80053; 81001; 82274; 82550; 82553; 82607; 82746; 83540; 83550; 83735; 84100; 85025; 85610; 85730; 87040; 87086; 87324; 89055; 93005; 96361; 96365; G0378; J0696; J7030; J7040

== ENCOUNTER → 2018-02-20 | Outpatient (CLI) | payer MEDICARE, MEDICAID ==
[~2018-02-20] MED LIST changes: +ACID1TAB7 PO; +CEFD300C37 PO; +VISIPAQUE 270 MG/ML, 50ML BOTTLE ONE
== END | disposition home or self-care (01) ==
LOC: RAD 11:00
PROVIDERS: ATTEND Specialist
DX: Z45.2 Encounter for adjustment and management of vascular access device (principal); E11.9 Type 2 diabetes mellitus without complications; I10 Essential (primary) hypertension
CPT/HCPCS: 36569; 76937; 77001; C1751; C1769; Q9966